=== PATIENT | female | born 1970 | race Caucasian/White ===

== ENCOUNTER → 2017-06-13 10:21 | Outpatient (CLI) | payer OTHER, SELFPAY ==
--- NOTE | 2017-06-13 10:26 | RAD_ITS ---
STUDY: X-RAY CHEST REASON FOR EXAM: Female, 46 years old. Chest pain. Shortness of breath. TECHNIQUE: PA and lateral views of the chest. COMPARISON: Comparison is made with prior study of December 14, 2011. FINDINGS: Pectus excavatum deformity. The lungs are clear and expanded. There is no demonstrated pleural abnormality. Normal size heart. Normal mediastinum and uzma. Normal visualized pulmonary arteries. Normal visualized aortic arch and descending thoracic aorta. Normal visualized thoracic spine. Normal visualized ribs, clavicles, and shoulders. There is no demonstrated abnormality of the visualized soft tissue structures of the upper abdomen. RAD/Chest PA and Lateral IMPRESSION: Normal x-ray examination of the chest. Electronically Signed: Michael Colbert MD at 13:16 EDT Tel [phone], Service support ,
== END ==
PROVIDERS: Family Provider Internal Medicine; PCP Internal Medicine; Visit Provider Internal Medicine
DX: R06.02 Shortness of breath (principal)
CPT/HCPCS: 71046

== ENCOUNTER → 2017-06-20 08:25 | Outpatient (CLI) | payer OTHER, SELFPAY ==
--- NOTE | 2017-06-20 08:28 | US_ITS ---
STUDY: ULTRASOUND GALLBLADDER REASON FOR VISIT: Female, 46 years old. Epigastric pain. TECHNIQUE: Ultrasound evaluation of the gallbladder was performed with real-time and static ballard-scale imaging. TECHNICAL QUALITY: Adequate. COMPARISON: CT dated August 13, 2011 FINDINGS: Gallbladder: Normal distended gallbladder. The gallbladder wall measures 2.2 mm. There is a negative sonographic Vogel's sign. There is no pericholecystic fluid. There are no gallstones. Common Bile Duct (C.B.D.): The common bile duct measures 2.6 mm. Within the right hepatic lobe there is a 1.5 x 1.2 x 1.3 cm simple cyst. The right kidney measures 9.2 cm in length. No hydronephrosis is visualized. US/Gallbladder IMPRESSION: Simple hepatic cyst. Electronically Signed: Marlyn Richards MD at 16:04 EDT Tel , Service support ,
== END ==
PROVIDERS: Family Provider Internal Medicine; PCP Internal Medicine; Visit Provider Internal Medicine
DX: R10.13 Epigastric pain (principal)
CPT/HCPCS: 76705

== ENCOUNTER → 2017-06-21 11:24 | Outpatient (CLI) | payer OTHER, SELFPAY ==
--- NOTE | 2017-06-21 11:28 | RAD_ITS ---
STUDY: X-RAY - RIGHT HAND REASON FOR EXAM: Female, 46 years old. Pain TECHNIQUE: 3 view(s) of the hand. COMPARISON: None. FINDINGS: Normal radiocarpal articulation. Normal distal radioulnar joint. Normal visualized carpal bones. Normal carpal articulations Normal carpometacarpal articulation of the thumb. Normal second through fifth carpometacarpal joints. Normal metacarpi. Normal metacarpophalangeal joint of the thumb. Normal interphalangeal joint of the thumb. Normal proximal and distal phalanges of the thumb. Normal metacarpophalangeal joints of the second through fifth fingers. Normal proximal and distal interphalangeal joints of the second through fifth fingers. Normal phalanges of the second through fifth fingers. The soft tissue structures are unremarkable. RAD/Hand Min 3 Views IMPRESSION: Normal x-ray examination of the hand. Electronically Signed: Theo Govea MD at 11:42 EDT Tel , Service support ,
== END ==
PROVIDERS: Family Provider Internal Medicine; PCP Internal Medicine; Visit Provider Nurse Practitioner
DX: M25.531 Pain in right wrist (principal)
CPT/HCPCS: 73130

== ENCOUNTER → 2017-06-27 07:19 | Outpatient (CLI) | payer OTHER, SELFPAY ==
--- NOTE | 2017-06-27 07:22 | NM_ITS ---
CLINICAL: 46-year-old female with reported history of abdominal pain and nausea. RADIONUCLIDE HEPATOBILIARY SCINTIGRAPHY COMPARISON: Gallbladder ultrasound report 06/20/2017 FINDINGS: Following the intravenous administration of 5.3 mCi of 99m Tc Mebrofenin, hepatobiliary images reveal: 1. Relatively prompt and homogeneous radiopharmaceutical concentration is noted by a normal sized liver. No parenchymal defects are identified. 2. Gallbladder activity is identified at 10 minutes post radiopharmaceutical administration. 3. Small intestinal tract is observed at 45 minutes following tracer injection. 4. Washout of the radiopharmaceutical by the hepatic parenchyma appears qualitatively normal. 5. There is scintigraphic evidence of pre-CCK duodenal gastric reflux. Cholecystokinin (0.02 ug/kg) was administered intravenously over a 30-minute period. The post CCK gallbladder ejection fraction calculated at 30 minutes following Cholecystokinin administration was noted to be 20.0 % (normal greater than 35%). There is scintigraphic evidence of continued post CCK duodenal gastric reflux. NM/Hepatobilliary Imaging IMPRESSION: 1. ABNORMAL 99m Tc Mebrofenin hepatobiliary imaging examination with Cholecystokinin. A. A gallbladder ejection fraction calculated to be less than 35% following the administration of Cholecystokinin is consistent with the presence of functional hepatobiliary disease (gallbladder and/or sphincter of Oddi dyskinesia) and/or organic hepatobiliary disease (chronic acalculous cholecystitis and/or cystic duct syndrome) in patients with intermediate to high pretest likelihoods of hepatobiliary illness. (Diogenes Garcia et al, Journal of Nuclear Medicine 32:1695, 1990). B. There is scintigraphic evidence of pre-post CCK duodenal-gastric reflux. (Octaviano et al, Nucl Med Shonna Rosa Press pg. 35, 1980). Electronically Signed: Quincy Kamara DO at 10:30 EDT Tel , Service support ,
== END ==
PROVIDERS: Family Provider Internal Medicine; PCP Internal Medicine; Visit Provider Internal Medicine
DX: R10.11 Right upper quadrant pain (principal)
CPT/HCPCS: 78226; A9537; J2805

== ENCOUNTER → 2017-07-04 06:32 | Outpatient (CLI) | payer OTHER, SELFPAY ==
--- NOTE | 2017-07-04 17:26 | STRESSREP ---
Stress Test Report Exercise myocardial perfusion stress test. 46-year-old lady with a history of chest pain. Stress protocol: Resting EKG demonstrates normal sinus rhythm with a rate of 69 bpm normal intervals and noted resting blood pressure is 118/72 mmHg. The patient exercised according to regular Reyes protocol for total duration of 10 minutes the maximum heart rate attained was 142 bpm which was 82% of maximum predicted heart rate the maximum workload attained was 11.7 metabolic equivalents. At rest were no ST or T-wave changes noted suggest ischemia peak exercise no ST or T-wave changes were noted suggest ischemia no clinical angina was noted. The test was terminated due to leg fatigue. Myocardial perfusion protocol. 11.5 mCi of technetium 99m sestamibi was injected at rest. Patient exercised a consult regular Reyes protocol for 10 minutes attaining 11.7 metabolic equivalents. At peak exercise 32.7 mCi of technetium 99m sestamibi was injected stress images were obtained stress and rest images were reconstructed and compared in the short axis vertical long and horizontal long axis. Gated images were also obtained pre- Perfusion SPECT analysis: Review of the stress images demonstrate normal uptake of tracer noted in all areas of the myocardium. The resting images similarly demonstrate normal uptake of tracer noted in all areas myocardium no reversibility is noted suggest ischemia no previous infarct is noted. Gated SPECT analysis: The gated ejection fraction is noted to be 75%. Conclusion: Exercise myocardial perfusion stress test with no evidence of ischemia at a high workload. Excellent functional capacity. Preserved ejection fraction.
== END ==
PROVIDERS: Family Provider Internal Medicine; PCP Internal Medicine; Visit Provider Internal Medicine
DX: R07.9 Chest pain, unspecified (principal)
CPT/HCPCS: 78452; 93017; A9500; A4216

== ENCOUNTER 2017-07-29 10:32 | Day surgery (SDC) | payer OTHER, SELFPAY ==
[2017-07-29] VITALS (9 sets, daily range): BP systolic 125–164; BP diastolic 68–102; PULSE 65–77; RESP 14–18; TEMP 35.7–36.6; O2SAT 93–100; BMI 25.4
--- NOTE | 2017-07-29 | GALL_PTH ---
PATIENT: VERONICA ANN LOC: [facility] [place][id number] AGE/SX: 47/F ROOM: RE07/29/[address]: Dr. Elias Wild MD : 1970 BED: DIS: 07/29/2017 SPEC #: [id number] RECD: 07/29/17 14:01 STATUS: MIKE REFaby #: [id number] LILIBETH: 07/29/17 00:[address]: Elias Wild DEPT: SURGICAL PATHOLOGY RECD BY: [place] Ann ENTERED: 07/29/17 14:01 SP TYPE: JESSICA VELASQUEZ DR: Dr. Carleen Michele, Tissues: Gallbladder, NOS Procedures: Surgery Specimen Level III HEADER OPERATION: Laparoscopic cholecystectomy PRE-OP DIAGNOSIS: Biliary dyskinesia TISSUE SUBMITTED: Gallbladder MICROSCOPIC DIAGNOSIS Gallbladder: Minimal chronic cholecystitis. No stones are identified in the container or in the gallbladder. SJ:alisa 07/30/17 MICROSCOPIC DESCRIPTION Slides are reviewed. GROSS DESCRIPTION Received is one container labeled with the patient's name and designated gallbladder. The specimen consists of a gallbladder measuring 7 cm in length and 3 cm in diameter. The external surface is pink-valenzuela, smooth and glistening for the most part. Focally it is granular, hemorrhagic and contains cautery artifact. The gallbladder contains green-yellow mucoid bile. No stones are identified in the container or in the gallbladder. The mucosa is bile-stained and without any mass lesions. The gallbladder wall measures up to 0.1 cm in thickness. Bushing Press Operator sections from the gallbladder and the cystic duct are submitted in one cassette. / SJ:rg 07/29/17 TC:3 CPT: 82302
--- NOTE | 2017-07-29 10:37 | EKG12_ITS ---
Test Reason : PREOP Blood Pressure : / mmHG Vent. Rate : 082 BPM Atrial Rate : 082 BPM P-R Int : 164 ms QRS Dur : 082 ms QT Int : 350 ms P-R-T Axes : 069 062 027 degrees QTc Int : 408 ms Normal sinus rhythm Biatrial enlargement Abnormal ECG When compared with ECG of 06-JAN-2012 14:14, No significant change was found Confirmed by LESLEE FENTON, ALBERT ([id number]), movie editor PHUONG TAO ([id number]) on 08/02/2017 3:58:01 PM Referred By: Elias Wild Confirmed By:ALBERT CAMILO MD
--- NOTE | 2017-07-29 12:16 | PCM.DC.GB ---
Discharge Diet: Light diet - advance as tolerated Discharge Activity: May Not Drive - for 2-3 days or while taking narcotic pain medications., - - Do not drive, work heavy equipment or sign legal documents for 24 hours. May shower in (days): 1 - with the bandage in place. Additional Activity Instructions:: Pain medication may cause nausea. You should typically eat light foods as you take your pain medications. Pain medication may also cause constipation. If this is a problem for you, please discuss with your doctor. Call your doctor if your incision/area has: Continuous Slow Oozing, Sudden Increased Bleeding, Increased Pain/ Swelling, Increased Redness, Foul Smelling Discharge Call your doctor if you observe: Fever of 101 or Higher Suture Line Care: Avoid Pulling/Pushing, Avoid Pinching/Bending Additional Dressing/Incision Instructions:: Leave operative bandaids on for 2 days. When you remove dressing, leave Steri-Strips on until your follow-up appointment, or until the Steri-Strips fall off on their own. Allergies/Adverse Reactions: Allergies cefuroxime [From Ceftin] Allergy (Unknown, Verified 07/24/17 10:02) Unknown clarithromycin [From Biaxin] Allergy (Unknown, Verified 07/24/17 10:02) Unknown doxycycline Allergy (Unknown, Verified 07/24/17 10:02) Unknown erythromycin base Allergy (Unknown, Verified 07/24/17 10:02) Unknown Medications to take at Discharge amitriptyline 10 mg tablet 10 mg PO QHS tab 07/18/17 levothyroxine 25 mcg tablet 25 mcg PO QDAY 07/18/17 venlafaxine ER 75 mg capsule,extended release 24 hr 75 mg PO BID 07/18/17 Calcium Carbonate/Vitamin D3 [Calcium 600-Vit D3 800 Tablet] 1 each PO BID 07/24/17 Vitamin K2 40 mcg PO DAILY 07/24/17 Oxycodone HCl/Acetaminophen [Percocet 5/325] 1 - 2 tab PO Q4H PRN PRN 4 Days #30 tab 07/29/17 The following prescriptions were given: Oxycodone HCl/Acetaminophen [Percocet 5/325] 1 - 2 tab PO Q4H PRN PRN 4 Days #30 tab PRN Reason: Pain Primary Care Physician: Carleen Michele DO [Primary Care Provider] - Please Follow Up With: Elias Wild MD - Please call [phone] to schedule an appointment. When: 7 days after your surgery.
--- NOTE | 2017-07-29 12:16 | PCM.OPRPT ---
Problem List (1) Biliary dyskinesia Status: Acute Report of Operation Date of Procedure: 07/29/17 Pre-Operative Diagnosis: k82.8 biliary dyskinesia Post-Operative Diagnosis: Same Surgery/Procedure Performed:: 42063 laparoscopic cholecystectomy Type of Anesthesia:: General Anesthesiologist: Bk Meehan Description of Procedure: Patient was brought in the operating room. Placed in the supine position. Under excellent general endotracheal intubation the abdomen was sterilely prepped and draped in the usual fashion. Local was injected infraumbilically. Dissection was carried down the fascia. The fascia was grasped with a Soraya. Varies needle was placed inside the abdomen. The abdomen was insufflated to 15 torr. A 10/12 trocar was placed without difficulty. Patient was placed in the head up and rotated to the left position. A subxiphoid #5 trocar was placed, inferior to this another #5 trocar was placed, and laterally a #5 trocar was placed. All these under direct visualization without injury to underlying structures. Patient had moderate amount of adhesions which were taken off the gallbladder. Fundus of the gallbladder was grasped retracted in a cephalad direction. Infundibulum was grasped retracted laterally. I dissected out the cystic duct. Please Hem-o-radha clips proximally and distally and ligated the duct. Identified the cystic artery. Please Hem-o-radha clips proximally and distally and ligated the artery. Deliver the gallbladder from the gallbladder bed with use of electrocautery I did had some spillage of bile but was able to retrieve this with a suction aspirator without difficulty. Placed a specimen and the specimen bag. I removed from the umbilical port without difficulty. Reinflated the abdomen inspected the right upper quadrant irrigated out all the irrigant was clear. I had excellent hemostasis. I remove the trochars under direct visualization. Good hemostasis was noted. I closed the fascia the umbilical port with a figure 8 stitch of 0 Vicryl. Skin incisions were closed with subcuticular stitches of 4-0 Monocryl. Steri-Strips are applied. Sterile dressings were applied. Patient tolerated the procedure well. - Admit VTE Documentation VTE Present on Admission: No VTE Mechan Device Prophylaxis: SCD's VTE Pharm Prophylaxis ordered?: No Reason prophylaxis not ordered:: Treatment Not Indicated
[2017-07-29] MEDS: Bupivacaine Mpf 0.5% 30 ML VIAL (12:40)
== END 2017-07-29 17:02 | disposition home or self-care (01) ==
LOC: SDC 10:33 → AC 10:34
PROVIDERS: Family Provider Internal Medicine; PCP Internal Medicine; Visit Provider Surgery
PROC: (CPT 47610; principal; 2017-07-29 12:10)
DX: K81.1 Chronic cholecystitis (principal); E03.9 Hypothyroidism, unspecified; E78.00 Pure hypercholesterolemia, unspecified; E55.9 Vitamin D deficiency, unspecified; K58.9 Irritable bowel syndrome, unspecified; F34.1 Dysthymic disorder; Z79.899 Other long term (current) drug therapy
CPT/HCPCS: 00790; 47562; 88304; 93005; J7120; J2405

== ENCOUNTER → 2017-09-11 07:21 | Outpatient (CLI) | payer OTHER, SELFPAY ==
--- NOTE | 2017-09-11 10:16 | NEURO ---
NCS and/or EMG Patient Report Ordering Doctor: Janet Leon DATE OF SERVICE: 09/11/17 This is a bilateral upper extremity nerve conduction study and a right upper extremity EMG performed on this 47-year-old female with bilateral hand symptoms following her third and fourth digits worse on the right side. She is healthy without a history of diabetes. The patient did have EMG testing in [address] Pardo which disclosed bilateral carpal tunnel syndrome. Bilateral upper extremity sensory and motor nerve conduction studies are performed. The median motor and sensory distal latencies are prolonged bilaterally with preservation of amplitude and mild reduction in conduction velocities. The ulnar motor and sensory and radial sensory responses are normal. The median F waves bilaterally are mildly prolonged compared to the ulnar F waves. Upper extremity needle electromyography was performed. Muscles evaluated included the first dorsal interosseous, abductor pollicis brevis, brachioradialis, biceps, triceps, and deltoid muscles. All muscles demonstrated normal insertional activity with absence of pathologic spontaneous activity. Motor unit potential recruitment pattern and amplitude are normal in all muscles tested. Impression: Abnormal electrophysiologic study of the bilateral upper extremities consistent with moderate to severe carpal tunnel syndrome bilaterally, electrically the findings are similar or mildly worse than the previous study in 2014.
== END ==
PROVIDERS: Family Provider Internal Medicine; PCP Internal Medicine; Visit Provider Nurse Practitioner
DX: R20.2 Paresthesia of skin (principal)
CPT/HCPCS: 95886; 95911

== ENCOUNTER 2018-08-23 17:48 | Emergency (ER) | payer OTHER, SELFPAY ==
[2018-08-23 17:48] VITALS: BP 119/71; PULSE 92; RESP 16; TEMP 36.9; O2SAT 99; BMI 25.9
[2018-08-23 18:05] LABS: Bacteria 0 SEEN /hpf (None Seen); Mucous, Urine 0 SEEN /hpf (<or=2+); Red Blood Cells-Urine 0 SEEN /hpf (0-5); Squamous Epithelial Cells - UA 0 SEEN /hpf (5-10); White Blood Cells 0 SEEN /hpf (0-5)
[2018-08-23 18:12] LABS: Color, Urine Yellow (Yellow); Glucose, Dipstick Normal (Normal); Ketone-Dipstick Negative (Negative); Leukocyte Esterase-Dipstick 100 /ul (Negative); Nitrite-Dipstick Negative (Negative); Occult Blood-Urine Negative /ul (Negative); Protein-Dipstick Negative (Negative); Urine Bilirubin Dipstick Negative (Negative); Urine Clarity Clear (Clear); Urine Urobilinogen Normal (Normal); Urine pH 6.5 (5.0 - 8.0)
--- NOTE | 2018-08-23 18:51 | CT_ITS ---
STUDY: CT ABDOMEN AND PELVIS WITH CONTRAST REASON FOR EXAM: Female, 48 years old. Abdominal pain, epigastric pain. RADIATION DOSAGE (If Supplied By Facility): CTDIvol = ( 12.07 ) mGy, DLP = ( 546.16 ) mGycm TECHNIQUE: Transaxial images were obtained from the dome of the diaphragm to the symphysis pubis without oral contrast. 100 IV Isovue 300 was administered. Sagittal and coronal images were reconstructed. Individualized dose optimization techniques were used for this CT. COMPARISON: None. FINDINGS: Lung bases are clear. Visualized heart is normal. There is a 1.9 cm cyst in the posterior segment of the liver inferiorly. There is a 5 mm hypodensity in the anterior segment superiorly. This suggests small to characterize. The liver is otherwise unremarkable. The gallbladder is unremarkable. The spleen and pancreas are unremarkable. The adrenal glands are normal. The kidneys are unremarkable. No stones or hydronephrosis. The aorta is normal in caliber. There is no free fluid, free air, or organized collection. No bowel obstruction or inflammatory change. Stool burden is moderate. Normal appendix. Urinary bladder is unremarkable. Normal abdominal wall. There are mild degenerative changes of the lumbar spine. Small disc bulges are noted at L4-5 and L5-S1. CT/Abdomen/Pelvis W IV Cont ONLY IMPRESSION: 1. No acute findings. 2. Hepatic cyst and an additional 5 mm hypodensity too small to characterize. 3. Small lumbar disc bulges. Electronically Signed: Caroline Hackett MD at 20:48 EDT Tel , Service support ,
--- NOTE | 2018-08-23 18:54 | ED.DCSUM_ITS ---
- ER Visit Summary Date of Service: 08/23/18 Chief Complaint: Low back pain and abdominal pain History of Present Illness: The patient is a 48 F who presents for bilateral lower back pain that started this morning and is gradually radiated bilaterally into the lower abdomen. Patient has had sweats all day and associated nausea. No vomiting, diarrhea, blood in her stool, dysuria or hematuria. Patient has had frequency and urgency today. She has history of thyroid issues, kidney stones and is status post cholecystectomy, hysterectomy. No chest pain, shortness of breath, cough, congestion or other complaints. Physical Examination: Vital signs: afebrile, hemodynamically stable, no hypoxia on room air General: well nourished, well developed, in no distress Skin: warm, dry, no rash, no pallor HEENT: normocephalic and atraumatic; PERRL, EOMI, moist mucous membranes Cardiovascular: regular rate and rhythm without murmurs, no peripheral edema, 2+ pulses all distal extremities Respiratory: No increased work of breathing, lungs are clear to auscultation bilaterally, no rales, rhonchi or wheezing Abdominal: Abdomen is soft, diffusely tender with normoactive bowel sounds, no guarding or rebound, no masses, no CVA tenderness MSK: Moves all extremities, no deformities, normal strength Neuro: Awake and alert, oriented ?4. No facial droop, sensation and motor function intact and symmetric Test Results: Abnormal Lab Results 08/23/18 08/23/18 08/23/18 17:58 19:14 19:14 WBC 9.5 RBC 4.94 Hgb 13.8 Hct 41.3 MCV 83.6 MCH 27.9 MCHC 33.4 RDW 12.7 RDW Differential 38.5 Plt Count 287 MPV 8.7 Immature Gran % (Auto) 0.100 Neut % (Auto) 51.0 Lymph % (Auto) 34.9 [place] % (Auto) 8.4 Eos % (Auto) 5.3 H Baso % (Auto) 0.3 Absolute Neuts (auto) 4.8 Absolute Lymphs (auto) 3.30 Total Counted Not Reportable Sodium 141 Potassium 3.8 Chloride 106 Carbon Dioxide 31.0 Anion Gap 4 L BUN 9 Creatinine 1.08 H Estim Creat Clear Calc 49.29 Est GFR (MDRD) Af Amer 69 Est GFR (MDRD) Non-Af 57 L BUN/Creatinine Ratio 8.3 L Glucose 79 Calcium 8.8 Total Bilirubin 0.30 AST 20 ALT 20 Alkaline Phosphatase 89 Total Protein 7.0 Albumin 3.7 Globulin 3.3 Albumin/Globulin Ratio 1.1 Lipase 432 H Urine Color Yellow Urine Clarity Clear Urine pH 6.5 Ur Specific Somers 1.010 Urine Protein Negative Urine Glucose (UA) Normal Urine Ketones Negative Urine Occult Blood Negative Urine Nitrite Negative Urine Bilirubin Negative Urine Urobilinogen Normal Ur Leukocyte Esterase 100 H Urine RBC 0 SEEN Urine WBC 0 SEEN Ur Squamous Epith Cells 0 SEEN Urine Bacteria 0 SEEN Urine Mucus 0 SEEN Clinical Impression(s) from Imaging Studies Abdomen/Pelvis CT 08/23/18 18:51 IMPRESSION: 1. No acute findings. 2. Hepatic cyst and an additional 5 mm hypodensity too small to characterize. 3. Small lumbar disc bulges. Electronically Signed: Caroline Hackett MD at 20:48 EDT Tel , Service support , Medications Given Discontinued Medications Hydrocodone Bitart/Acetaminophen (Clarkrange 5mg-325mg) 1 tablet PO X1 ONE Stop: 08/23/18 21:49 Last Admin: 08/23/18 22:00 Dose: 1 tablet Sodium Chloride () 1,000 mls @ 1,000 mls/hr IV .Q1H ONE Stop: 08/23/18 19:50 Last Admin: 08/23/18 19:15 Dose: 1,000 mls/hr Morphine Sulfate () 4 mg IV X1 ONE Stop: 08/23/18 18:52 Last Admin: 08/23/18 19:15 Dose: 4 mg Morphine Sulfate () 4 mg IV X1 ONE Stop: 08/23/18 21:00 Last Admin: 08/23/18 21:05 Dose: 4 mg Ondansetron HCl (Zofran) 4 mg IV X1 ONE Stop: 08/23/18 18:52 Last Admin: 08/23/18 19:15 Dose: 4 mg Trimethoprim/Sulfamethoxazole (Bactrim Ds) 1 tablet PO X1 ONE Stop: 08/23/18 21:49 Last Admin: 08/23/18 22:00 Dose: 1 tablet Emergency Department Course and Treatment: Patient presents with lower back and lower abdominal pain bilaterally. She is status post hysterectomy and o ophorectomy, making ovarian torsion or other gynecologic issue highly unlikely. Patient was given fluids, morphine and Zofran for symptomatic relief. Labs showed no leukocytosis. CMP is unremarkable. Lipase was slightly elevated at 432, with no suspicion for pancreatitis based on patient's complaints. Urinalysis showed positive leuk esterase. Culture was sent. CT of the abdomen pelvis showed bulging disks in the lumbar region but no acute intra-abdominal process. Patient required additional pain medication and was comfortable on reevaluation. Because of the clinical picture and the findings on the urinalysis of the leukoesterase, patient will be started empirically on Bactrim for treatment of UTI. Culture is pending. Patient will use [id number] pain medication for mild to moderate pain. She was given norco for severe pain. Patient has an appointment with her primary care physician in 5 days and will keep that appointment. Return precautions given. Discharged home in improved condition. Treatment Plan: [] Disposition: [] Impression: Concern for UTI This note was generated with [employer] dictation software. It may contain incorrect words, spelling, and punctuation that were not noted in review of the chart prior to signing ED Disposition - Plan for ED Patient: Disposition: Home or Assisted Living Instructions: ED Abdominal Pain Unkn Cause, ED UTI Cystitis Female Prescriptions: Hydrocodone Bitart/Apap 5-325 [Clarkrange 5MG-325MG] 1 tab PO Q6H PRN PRN 3 Days #10 tab PRN Reason: Pain Ondansetron [Zofran Odt] 4 mg PO Q8H PRN PRN #10 tab PRN Reason: Nausea Smz/Tmp Ds [Bactrim Ds] 1 tab PO BID #10 tab Referrals: Carleen Michele DO [Primary Care Provider] - Keep Chan appointment Additional Instructions: Please keep your appointment on with your primary care doctor. Use [id number] pain medication as needed for mild to moderate pain. You may use the Clarkrange for severe pain. Use the Zofran as needed for nausea. You may have a urinary tract infection. Please take the Bactrim twice daily as prescribed. If at any time you develop worsening or new symptoms, please return immediately to the emergency department for another evaluation.
[2018-08-23] MEDS: Morphine 4 MG/ML Syringe IV ×2 (19:15→21:05)
[2018-08-23] MEDS: Ondansetron 4 MG/2 ML Vial IV (19:15)
[2018-08-23] MEDS: 0.9% Normal Saline 1,000 ML 1000 ML IV (19:15)
[2018-08-23 19:28] LABS: Absolute Neutrophil Count 4.8 X10^3/uL (2.0-7.7); Basophil# 0.03 X10^3/uL; Basophil% 0.3 % (0-1); Eosinophils% 5.3 % (0-5); Hematocrit 41.3 % (37-47); Hemoglobin 13.8 g/dl (12.0-15.0); Lymphocyte % 34.9 % (19-41); Mean Corp Hgb Conc 33.4 g/gl (32-36); Mean Corpuscular Hgb 27.9 pg (27.0-32.0); Mean Corpuscular Volume 83.6 fL (81-99); Mean Platelet Vol. 8.7 fl (6.2-12.0); Monocyte# 0.79 X10^3/uL; Monocyte% 8.4 % (0-10); Neutrophil # 4.83 X10^3/uL (2.7-7.7); Platelet Count 287 K/mm3 (150-450); RBC Distribution Width CV 12.7 % (11.6-14.6); RBC Distribution Width SD 38.5 fl (35.1-43.9); Red Blood Count 4.94 M/mm3 (4.2-5.4); White Blood Count 9.5 K/mm3 (4.4-11.0)
[2018-08-23 19:29] LABS: POSITIVE COUNT NO; POSITIVE DIFFERENTIAL NO; POSITIVE MORPHOLOGY NO
[2018-08-23 19:42] LABS: ALB/GLOB Ratio 1.1 RATIO (0.9-2.4); AST(SGOT) 20 U/L (15-37); Alanine Aminotransfer ALT/SGPT 20 U/L (13-56); Albumin, Serum 3.7 g/dL (3.2-5.0); Alkaline Phosphatase 89 U/L (45-117); Anion Gap 4 (5-15); BUN 9 mg/dL (7-18); BUN/Creat Ratio 8.3 RATIO (10-20); Calcium,Total 8.8 mg/dL (8.5-10.1); Chloride 106 mmol/L (98-107); Creatinine, Serum 1.08 mg/dL (0.55-1.02); EST Glomerular Filtration Rate 57 mL/min (>60); Est Glom Filt Rate - Afr Amer 69 mL/min (>60); Estimated Creatinine Clearance 49.29 ml/min; Globulin 3.3 g/dL (2.2-4.2); Glucose 79 mg/dL (74-106); Lipase 432 U/L (73-393); Potassium 3.8 mmol/L (3.5-5.1); Sodium Level 141 mmol/L (136-145)
[2018-08-23 21:06] VITALS: BP 145/72; PULSE 78; RESP 16; O2SAT 98
[2018-08-23] MEDS: Smz/Tmp Ds Tablet 1 TABLET PO (22:00)
[2018-08-23] MEDS: HYDROcodone Bitartrate/Apap 5/325 Tablet PO (22:00)
[2018-08-23 22:01] VITALS: BP 134/90; PULSE 81; RESP 16
== END 2018-08-23 22:02 | disposition home or self-care (01) ==
PROVIDERS: Emergency Provider Emergency Medicine; Family Provider Internal Medicine; PCP Internal Medicine
DX: R10.30 Lower abdominal pain, unspecified (principal); M54.5 Low back pain; R11.0 Nausea; R79.89 Other specified abnormal findings of blood chemistry; R35.0 Frequency of micturition; R39.15 Urgency of urination; E07.9 Disorder of thyroid, unspecified; Z79.899 Other long term (current) drug therapy; Z87.442 Personal history of urinary calculi; Z90.710 Acquired absence of both cervix and uterus; Z90.49 Acquired absence of other specified parts of digestive tract
CPT/HCPCS: 74177; 80053; 81001; 83690; 85025; 87086; 87088; 96361; 96374; 96375; 96376; 99284; J7030; Q9967; A4216; J2405

== ENCOUNTER → 2019-02-05 08:35 | Outpatient (CLI) | payer OTHER, SELFPAY ==
--- NOTE | 2019-02-05 08:39 | BD_ITS ---
STUDY: DUAL ENERGY X-RAY ABSORPTIOMETRY / DXA REASON FOR EXAM: Female, 48 years old. Early menopause. No loss of height. TECHNIQUE: Bone Mineral Density (BMD) measurements of lumbar spine and bilateral hips were obtained. COMPARISON: Comparison is made with prior study dated May 17, 2016. FINDINGS: Lumbar Spine (L1-L4): g/cm2 (0.973) / T-score (-1.6) / Z-score (-1.2) Findings are suggestive of osteopenia with a moderate fracture risk. Left Femur Total: g/cm2 (0.962) / T-score (-0.4) / Z-score (0.1) Left Femoral Neck: g/cm2 (0.950) / T-score (-0.6) / Z-score (0.2) Right Femur Total: g/cm2 (0.915) / T-score (-0.7) / Z-score (-0.2) Right Femoral Neck: g/cm2 (0.876) / T-score (-1.2) / Z-score (-0.4) The T-Scores on the most recent prior examination were: Lumbar Spine (L1-L4): There has been worsening of bone density since the previous examination. Left Femur Total: which represents a worsening of 3%. Right Femur Total: which represents a worsening of 6%. BD/Dexa Bone Density Study IMPRESSION: The patient is considered osteopenic as outlined below according to World Quinton Organization (WHO) criteria with a moderate fracture risk. There has been worsening of bone density since the previous examination. Reference Information: The T-score is the number of standard deviations above or below the standard which is normal for young adults at their peak bone mineral density. The World Health Organization (WHO) interprets the T-scores as follows: Above -1 Normal bone density Between -1 and -2.5 Osteopenia Equal to / or below -2.5 Osteoporosis As a practical clinical guideline, osteopenia may be graded as follows: Mild -1 through -1.5 Moderate -1.6 through -2.0 Severe -2.1 through -2.4 The Z-score is the number of standard deviations above or below age-matched controls. A Z-score of less than -1.5 would be considered abnormal. References: 1. NIH Osteoporosis and Related Bone Diseases http://www.osteo.org 2. International Society for Clinical Densitometry http://www.iscd.org 3. National Osteoporosis Foundation http://www.nof.org Electronically Signed: Michael Colbert, at 12:47 EST , Service support ,
== END ==
PROVIDERS: Family Provider Internal Medicine; PCP Internal Medicine; Referring Provider Internal Medicine; Visit Provider Internal Medicine
DX: Z78.0 Asymptomatic menopausal state (principal); M85.80 Other specified disorders of bone density and structure, unspecified site
CPT/HCPCS: 77080

== ENCOUNTER 2020-03-18 17:03 | Emergency (ER) | payer OTHER, SELFPAY ==
[2020-02-26 11:15] VITALS: BMI 26.9
[2020-03-18 17:04] VITALS: BP 143/92; PULSE 88; RESP 16; TEMP 36.2; O2SAT 100; BMI 25.9
[2020-03-18 17:22] LABS: Bacteria 0 SEEN /hpf (None Seen); Mucous, Urine 0 SEEN /hpf (<or=2+); Red Blood Cells-Urine 0 SEEN /hpf (0-5)
[2020-03-18 17:34] LABS: Color, Urine Yellow (Yellow); Glucose, Dipstick Normal (Normal); Ketone-Dipstick Negative (Negative); Leukocyte Esterase-Dipstick 100 /ul (Negative); Nitrite-Dipstick Negative (Negative); Occult Blood-Urine Negative /ul (Negative); Protein-Dipstick Negative (Negative); Urine Bilirubin Dipstick Negative (Negative); Urine Clarity Sl. Cloudy (Clear); Urine Urobilinogen Normal (Normal)
[2020-03-18 17:58] LABS: Amorphous Sediment 1+ URATE; Squamous Epithelial Cells - UA 0-5 SEEN /hpf (5-10); White Blood Cells 10-25 SEEN /hpf (0-5)
--- NOTE | 2020-03-18 18:16 | ED.VIS.GEN ---
History of Present Illness Chief Complaint: Flank Pain Detail of Chief Complaint: Abdominal pain Informant: Patient Onset: Days - 3 days Context: Gradual Onset Timing: Waxes and wanes Current Severity: Moderate Maximum Severity: Moderate Narrative: Patient presents with 3-day history of abdominal pain. She states at times it will feel like it is left flank. She has not had fever or chills. No change in appetite. She feels that she may have been urinating more than normal today. - Past Medical History (1) Hypothyroid Status: Chronic (2) Hypercholesteremia Status: Chronic (3) Depression Status: Chronic (4) Anxiety Status: Chronic Past Medical History - Allergies and Home Meds Allergies/Adverse Reactions: Allergies cefuroxime [From Ceftin] Allergy (Unknown, Verified 03/18/20 17:06) Unknown clarithromycin [From Biaxin] Allergy (Unknown, Verified 03/18/20 17:06) Unknown doxycycline Allergy (Unknown, Verified 03/18/20 17:06) Unknown erythromycin base Allergy (Unknown, Verified 03/18/20 17:06) Unknown Primary Care Physician: Carleen Michele DO [Primary Care Provider] - Prior records reviewed: Yes Lives: Spouse/ Significant Other Smoking Status: Never smoker Review of Systems General: Denies: Chills, Fever Eyes: Denies: Visual changes - bilaterally ENT: Denies: Bilateral ear pain Cardiovascular: Denies: Chest pain Respiratory: Denies: Dyspnea, Cough Gastrointestinal: Reports: Abdominal pain. Denies: Vomiting, Diarrhea Genitourinary: Reports: Frequency. Denies: Dysuria Musculoskeletal: Denies: Extremity Pain Neurological: Denies: Headache Hematologic: Denies: Easy bruising, Easy bleeding Allergy: Denies: Uticaria Physical Exam Vital Signs/Narrative: Vital Signs Temp Pulse Resp BP Pulse Ox 03/18/20 17:04 97.2 F L 88 16 143/92 H 100 Inital Vital Signs reviewed: Yes General: Well nourished, Well developed Head: Normocephalic ENT: Moist mucous membranes Neck: Supple Cardiovascular: Regular rate, Regular rhythm Respiratory: No distress, CTA bilaterally Abdomen: Soft, Tender - Mild diffuse tenderness to palpation.. Negative for: Guarding, Rebound tenderness Extremities: Nontender Skin: Normal color Neurological: Alert, Oriented x3 Psychological: Normal affect Diagnostic/Tx/Re-eval Impressions Abdomen/Pelvis CT 03/18/20 18:55 IMPRESSION: Unremarkable abdomen. No acute findings. Electronically Signed: Rosana Quezada, at 19:29 EST Tel , Service support , 03/18/20 18:55 Abdomen/Pelvis without Cont [CT] Stat Laboratory Results 03/18/20 03/18/20 03/18/20 17:13 18:40 18:40 WBC 9.2 RBC 5.14 Hgb 14.5 Hct 43.6 MCV 84.8 MCH 28.2 MCHC 33.3 RDW Std Deviation 38.5 RDW Coeff of [place] 12.5 Plt Count 344 MPV 8.8 Immature Gran % (Auto) 0.200 Neut % (Auto) 53.2 Lymph % (Auto) 33.5 Gordon % (Auto) 8.0 Eos % (Auto) 4.7 Baso % (Auto) 0.4 Absolute Neuts (auto) 4.9 Absolute Lymphs (auto) 3.09 Nucleated RBC % 0 Sodium 142 Potassium 3.5 Chloride 105 Carbon Dioxide 32.0 Anion Gap 5 BUN 12 Creatinine 0.91 Estim Creat Clear Calc 57.85 Est GFR (MDRD) Af Amer 83 Est GFR (MDRD) Non-Af 69 BUN/Creatinine Ratio 13.2 Glucose 82 Calcium 9.1 Total Bilirubin 0.40 AST 18 ALT 25 Alkaline Phosphatase 93 Total Protein 7.0 Albumin 3.8 Globulin 3.2 Albumin/Globulin Ratio 1.2 Urine Color Yellow Urine Clarity Sl. Cloudy Urine pH 6.0 Ur Specific [place] 1.020 Urine Protein Negative Urine Glucose (UA) Normal Urine Ketones Negative Urine Occult Blood Negative Urine Nitrite Negative Urine Bilirubin Negative Urine Urobilinogen Normal Ur Leukocyte Esterase 100 H Urine RBC 0 SEEN Urine WBC 10-25 SEEN Ur Squamous Epith Cells 0-5 SEEN Amorphous Sediment 1+ URATE Urine Bacteria 0 SEEN Urine Mucus 0 SEEN - Medical Decision Making Patient was given 2 mg of morphine, 15 mg of Toradol, 4 mg of Zofran, and IV fluids. Test results are reviewed. Patient has no bacteria in her urine. Electrolytes and CBC are normal. CT scan is read as unremarkable study. On my review she does have significant gas noted throughout the intestine. She will be given Bentyl to see if this helps control spasm and gas pain. She is given return instructions. ED Disposition - Plan for ED Patient: Disposition: Home or Assisted Living Diagnosis: Abdominal pain Instructions: ED Abdominal Pain Unkn Cause Fem Prescriptions: Dicyclomine HCl [Bentyl] 20 mg PO TIDAC #20 cap Transmission Status: Pending to [id number] Referrals: Carleen Michele DO [Primary Care Provider] - 1 Week if not improving
[2020-03-18] MEDS: 0.9% Normal Saline 1,000 ML 150 ML IV (18:40)
[2020-03-18] MEDS: Ondansetron 4 MG/2 ML Vial IV (18:41)
[2020-03-18] MEDS: Ketorolac 15 MG/ML Vial IV (18:41)
[2020-03-18] MEDS: Morphine 2 MG/ML Syringe IV (18:43)
[2020-03-18 18:51] LABS: Absolute Lymphocyte Count 3.09 X10^3/uL (0.83-4.51); Absolute Neutrophil Count 4.9 X10^3/uL (2.0-7.7); Basophil# 0.04 X10^3/uL; Basophil% 0.4 % (0-1); Eosinophil# 0.43 X10^3/uL; Eosinophils% 4.7 % (0-5); Hematocrit 43.6 % (37-47); Hemoglobin 14.5 g/dL (12.0-15.0); Lymphocyte # 3.09 X10^3/ul (4.0); Lymphocyte % 33.5 % (19-41); Mean Corp Hgb Conc 33.3 g/dL (32-36); Mean Corpuscular Hgb 28.2 pg (27.0-32.0); Mean Corpuscular Volume 84.8 fL (81-99); Mean Platelet Vol. 8.8 fl (6.2-12.0); Monocyte# 0.74 X10^3/uL; NRBC Flagged by Analyzer 0 % (0-5); Neutrophil % 53.2 % (47-70); Platelet Count 344 K/mm3 (150-450); RBC Distribution Width CV 12.5 % (11.6-14.6); RBC Distribution Width SD 38.5 fl (35.1-43.9); Red Blood Count 5.14 M/mm3 (4.2-5.4); White Blood Count 9.2 K/mm3 (4.4-11.0)
--- NOTE | 2020-03-18 18:55 | CT_ITS ---
STUDY: CT ABDOMEN AND PELVIS WITHOUT CONTRAST REASON FOR EXAM: Female, 49 years old. Flank pain for 3 days, RADIATION DOSAGE (If Supplied By Facility): CTDIvol = ( 6.35 ) mGy, DLP = ( 330.02 ) mGycm TECHNIQUE: Transaxial images were obtained from the dome of the diaphragm to the symphysis pubis without oral contrast, and without intravenous contrast. Sagittal and coronal images were reconstructed. Individualized dose optimization techniques were used for this CT. COMPARISON: None. FINDINGS: The visualized lung bases are unremarkable. The visualized portions of the heart are within normal limits. There is a presumed hepatic cyst in the lower right lobe.. There is cholecystectomy. Normal spleen. Normal pancreas. There are benign dystopic ossifications in the right adrenal. There are no adrenal lesions. Normal right kidney. Normal left kidney. Normal visualized stomach. Normal small intestine. Normal colon. The appendix is visualized and appears normal. Normal abdominal aorta. Normal inferior vena cava. Normal retroperitoneum. Normal urinary bladder. Uterus is surgically removed. There are no lytic phleboliths. Normal abdominal wall. Osseous structures are intact with benign hemangioma in L3. CT/Abdomen/Pelvis without Cont IMPRESSION: Unremarkable abdomen. No acute findings. Electronically Signed: Rosana Quezada, at 19:29 EST Tel , Service support ,
[2020-03-18 19:07] LABS: ALB/GLOB Ratio 1.2 RATIO (0.9-2.4); AST(SGOT) 18 U/L (15-37); Alanine Aminotransfer ALT/SGPT 25 U/L (13-56); Albumin, Serum 3.8 g/dL (3.2-5.0); Alkaline Phosphatase 93 U/L (45-117); Anion Gap 5 (5-15); BUN 12 mg/dL (7-18); BUN/Creat Ratio 13.2 RATIO (10-20); Calcium,Total 9.1 mg/dL (8.5-10.1); Chloride 105 mmol/L (98-107); Creatinine, Serum 0.91 mg/dL (0.55-1.02); EST Glomerular Filtration Rate 69 mL/min (>60); Est Glom Filt Rate - Afr Amer 83 mL/min (>60); Estimated Creatinine Clearance 57.85 ml/min; Globulin 3.2 g/dL (2.2-4.2); Glucose 82 mg/dL (74-106); Potassium 3.5 mmol/L (3.5-5.1); Sodium Level 142 mmol/L (136-145)
[2020-03-18 19:57] VITALS: BP 138/86; PULSE 76; RESP 17; O2SAT 97
[2020-03-18] MEDS: Dicyclomine 10 MG Capsule 20 MG PO (20:07)
[2020-03-18 20:09] VITALS: RESP 18
== END 2020-03-18 20:09 | disposition home or self-care (01) ==
PROVIDERS: Emergency Provider Emergency Medicine; PCP Internal Medicine
DX: R10.9 Unspecified abdominal pain (principal); E78.00 Pure hypercholesterolemia, unspecified; E03.9 Hypothyroidism, unspecified; F32.9 Major depressive disorder, single episode, unspecified; F41.9 Anxiety disorder, unspecified; Z88.1 Allergy status to other antibiotic agents
CPT/HCPCS: 74176; 80053; 81001; 85025; 96361; 96374; 96375; 99284; J7030; A4216; J2405

== ENCOUNTER 2020-05-30 17:19 | Emergency (ER) | payer OTHER, SELFPAY ==
[2020-05-26 09:15] VITALS: BMI 25.7
[2020-05-30 17:21] VITALS: BP 123/75; PULSE 95; RESP 17; TEMP 36.1; O2SAT 100; BMI 24.8
[2020-05-30 17:27] VITALS: BP 123/75; PULSE 95; RESP 17; TEMP 36.1; O2SAT 100
[2020-05-30 17:51] VITALS: BP 144/99; PULSE 89; RESP 18; TEMP 36.6; O2SAT 99
[2020-05-30] MEDS: dexAMETHasone 10 MG/ML Vial 6 MG IV (18:04)
[2020-05-30 18:07] VITALS: BP 144/99; PULSE 89; RESP 18; O2SAT 98
[2020-05-30 18:09] LABS: Absolute Lymphocyte Count 2.06 X10^3/uL (0.83-4.51); Absolute Neutrophil Count 2.4 X10^3/uL (2.0-7.7); Basophil# 0.02 X10^3/uL; Basophil% 0.4 % (0-1); Differential Indicated SCAN CRITERIA MET; Eosinophil# 0.12 X10^3/uL; Eosinophils% 2.3 % (0-5); Hemoglobin 14.5 g/dL (12.0-15.0); Lymphocyte # 2.06 X10^3/ul (4.0); Lymphocyte % 39.6 % (19-41); Mean Corp Hgb Conc 32.2 g/dL (32-36); Mean Corpuscular Hgb 26.8 pg (27.0-32.0); Mean Platelet Vol. 8.8 fl (6.2-12.0); Monocyte# 0.55 X10^3/uL; Monocyte% 10.6 % (0-10); NRBC Flagged by Analyzer 0 % (0-5); Neutrophil # 2.43 X10^3/uL (2.7-7.7); Neutrophil % 46.7 % (47-70); POSITIVE MORPHOLOGY YES; Platelet Count 350 K/mm3 (150-450); RBC Distribution Width CV 12.2 % (11.6-14.6); RBC Distribution Width SD 37.1 fl (35.1-43.9); Red Blood Count 5.42 M/mm3 (4.2-5.4); White Blood Count 5.2 K/mm3 (4.4-11.0)
--- NOTE | 2020-05-30 18:12 | RAD_ITS ---
STUDY: X-RAY CHEST REASON FOR EXAM: Female, 49 years old. weak, covid + TECHNIQUE: Single AP portable view of the chest. COMPARISON: 06/13/2017 FINDINGS: Faint alveolar opacities in both lung bases consistent with bibasilar pneumonia. There is no demonstrated pleural abnormality. Normal size heart. Normal mediastinum and uzma. Normal visualized pulmonary arteries. Normal visualized aortic arch and descending thoracic aorta. Mild levoscoliosis of the lower thoracic spine. Normal visualized ribs, clavicles, and shoulders. There is no demonstrated abnormality of the visualized soft tissue structures of the upper abdomen. RAD/Chest 1 View (Portable) IMPRESSION: Bibasilar pneumonia. Electronically Signed: Quincy Fischer MD at 19:08 EST Tel , Service support ,
--- NOTE | 2020-05-30 18:18 | ED.VIS.GEN ---
History of Present Illness Chief Complaint: General Illness Narrative: Patient was diagnosed with Covid 4 days ago but her symptoms started about a week ago. She is just feeling ill. She has no shortness of breath. She has no fever or chills. She feels weak especially that she has to care for her mother. She has no upper airway congestion, she has no back pain. She has no pleuritic component she has no lower extremity edema. She does have some myalgias. No loss of taste or smell. Past medical history: Overall unremarkable Medications: Reviewed Social history: Noncontributory Review of systems: All systems negative except as indicated General: Denies: Fever. Generalized weakness as in HPI Eyes: Denies: Visual changes - bilaterally ENT: Denies: Rhinorrhea, Sore throat Cardiovascular: Denies: Chest pain Respiratory: Denies: Dyspnea, Cough Gastrointestinal: Denies: Abdominal pain, Nausea, Vomiting Genitourinary: Denies: Dysuria Musculoskeletal: Generalized myalgias as in HPI Skin: Denies: Rash Neurological: Denies: Headache, no focal weakness Psych: Reports: negative Hematologic: Denies: Easy bruising, Easy bleeding Physical exam General: Well nourished, Well developed, No Acute Distress Head: Normocephalic, Atraumatic Eyes: Conjunctiva not pale ENT: Moist mucous membranes Neck: Supple, Nontender, No lymphadenopathy Cardiovascular: Regular rate, Regular rhythm Respiratory: No distress, CTA bilaterally Abdomen: Soft, Nontender, Nondistended Back: Nontender, Normal Inspection. Negative for: CVA tenderness Extremities: Nontender, No edema Skin: Normal color, No rash Neurological: Alert, Normal Strength, Normal Sensation Psychological: Normal affect Past Medical History - Allergies and Home Meds Allergies/Adverse Reactions: Allergies cefuroxime [From Ceftin] Allergy (Unknown, Verified 05/30/20 17:21) Unknown clarithromycin [From Biaxin] Allergy (Unknown, Verified 05/30/20 17:21) Unknown doxycycline Allergy (Unknown, Verified 05/30/20 17:21) Unknown erythromycin base Allergy (Unknown, Verified 05/30/20 17:21) Unknown Primary Care Physician: Carleen Michele DO [Primary Care Provider] - Smoking Status: Never smoker Physical Exam Vital Signs/Narrative: Vital Signs Temp Pulse Resp BP Pulse Ox 05/30/20 18:07 89 18 144/99 H 98 05/30/20 17:51 98 F 89 18 144/99 H 99 05/30/20 17:27 96.9 F L 95 17 123/75 H 100 05/30/20 17:21 96.9 F L 95 17 123/75 H 100 Diagnostic/Tx/Re-eval Chest X-Ray - ED: 1 View, Read by ED Physician, Read by Radiologist, - - Patient has bilateral groundglass infiltrates consistent with Covid - Medical Decision Making Patient has normal oxygenation she has normal vitals she appears well. I had a long discussion with her she will be discharged in stable condition. I gave her Decadron here but otherwise she appears well. She is told to get a pulse oximeter, if she feels worse she needs to return. ED Disposition - Plan for ED Patient: Disposition: Home or Assisted Living Diagnosis: COVID-19 Instructions: Coronavirus Disease 2019 (COVID-19): Overview Referrals: Carleen Michele DO [Primary Care Provider] - 1 Day
[2020-05-30 18:27] LABS: Atypical Lymphocyte 1+ %
[2020-05-30 18:29] LABS: ALB/GLOB Ratio 0.8 RATIO (0.9-2.4); AST(SGOT) 93 U/L (15-37); Alanine Aminotransfer ALT/SGPT 71 U/L (13-56); Albumin, Serum 3.3 g/dL (3.2-5.0); Alkaline Phosphatase 87 U/L (45-117); Anion Gap 7 (5-15); BUN 12 mg/dL (7-18); BUN/Creat Ratio 13.7 RATIO (10-20); Calcium,Total 9.1 mg/dL (8.5-10.1); Chloride 104 mmol/L (98-107); Creatinine, Serum 0.88 mg/dL (0.55-1.02); EST Glomerular Filtration Rate 72 mL/min (>60); Est Glom Filt Rate - Afr Amer 87 mL/min (>60); Estimated Creatinine Clearance 59.82 ml/min; Globulin 3.9 g/dL (2.2-4.2); Glucose 82 mg/dL (74-106); Potassium 3.8 mmol/L (3.5-5.1); Protein, Total 7.2 g/dL (6.4-8.2); Sodium Level 142 mmol/L (136-145)
[2020-05-30] MEDS: Ketorolac 15 MG/ML Vial IV (19:44)
[2020-05-30 19:46] VITALS: BP 143/69; PULSE 74; RESP 17; O2SAT 98
== END 2020-05-30 19:54 | disposition home or self-care (01) ==
PROVIDERS: Emergency Provider Emergency Medicine; PCP Internal Medicine
DX: U07.1 COVID-19 (principal); M79.10 Myalgia, unspecified site; R53.1 Weakness
CPT/HCPCS: 71045; 80053; 85025; 96374; 96375; 99283; A4216

== ENCOUNTER → 2021-07-26 | Outpatient (CLI) | payer OTHER, SELFPAY ==
[2021-07-26 18:57] LABS: Thyroid Stim Hormone (TSH) 4.33 uIU/mL (0.358-3.74)
== END | disposition home or self-care (01) ==
PROVIDERS: PCP Internal Medicine; Referring Provider Internal Medicine; Visit Provider Internal Medicine
DX: E03.9 Hypothyroidism, unspecified (principal)
CPT/HCPCS: 36415; 84443

== ENCOUNTER → 2021-08-16 | Outpatient (CLI) | payer OTHER, SELFPAY ==
--- NOTE | 2021-08-16 11:27 | BI_ITS ---
MAMMOGRAPHY - BILATERAL SCREENING REASON FOR EXAM: Female, 51 years old. Routine annual screening examination. PERTINENT HISTORY: Aunts with breast cancer. TECHNIQUE: Digital bilateral breast sabina (3D mammographic acquisition) in the CC and MLO projections. 2-D mediolateral oblique (MLO) and craniocaudad (CC) views of both breasts were obtained. CAD: Full Field Digital Mammography with Computer Added Detection was performed. COMPARISON: Comparison is made with prior study dated 05/17/2016 and 02/04/2015. FINDINGS: Breast Composition: The breasts are heterogeneously dense, which may obscure small masses. There are no dominant masses or suspicious calcifications. Stable asymmetrical breast tissue with more breast tissue is seen in the deep central medial aspect of the left breast as compared to the right side. No other significant abnormalities are identified. There has been no significant change since the prior study. BI/SCRN MAMM (CAD)W/SABINA BILAT IMPRESSION: Stable bilateral screening mammogram. Yearly follow-up mammogram recommended. (A) ASSESSMENT CATEGORY: BIRADS Category 2: Benign. A letter regarding these results will be sent to the patient by the facility within 30 days. Approximately 10% of breast cancers are not detected by mammography. A normal mammogram should not delay biopsy of a clinically suspicious abnormality. [id number] Electronically Signed: Michael Colbert MD at 12:26 EDT ,
--- NOTE | 2021-08-16 11:29 | BD_ITS ---
STUDY: DUAL ENERGY X-RAY ABSORPTIOMETRY / DXA REASON FOR EXAM: Female, 51 years old. 627.8Menopausal postmenopausalBONE DENSITY REASON FOR EXAM TECHNIQUE: Bone Mineral Density (BMD) measurements of lumbar spine and bilateral hips were obtained. COMPARISON: Comparison is made with prior study 02/05/2019. FINDINGS: Lumbar Spine (L1-L4): g/cm2 (0.985) / T-score (-0.6) / Z-score (0.4) Findings are suggestive of normal bone density with a low fracture risk. Left Femur Total: g/cm2 (0.902) / T-score (-0.3) / Z-score (0.3) Left Femoral Neck: g/cm2 (0.758) / T-score (-0.8) / Z-score (0.1) Right Femur Total: g/cm2 (0.868) / T-score (-0.6) / Z-score (0.0) Right Femoral Neck: g/cm2 (0.690) / T-score (-1.4) / Z-score (-0.5) The T-Scores on the most recent prior examination were: Lumbar Spine (L1-L4): There has been worsening of bone density since the previous examination. Left Femur Total: which represents an improvement of 0.5%. Right Femur Total: which represents an improvement of 1.9%. BD/Dexa Bone Density Study IMPRESSION: The patient is considered osteopenic as outlined below according to World [employer] Organization (WHO) criteria with a low fracture risk. There has been improvement of bone density since the previous examination. Reference Information: The T-score is the number of standard deviations above or below the standard which is normal for young adults at their peak bone mineral density. The World Health Organization (WHO) interprets the T-scores as follows: Above -1 Normal bone density Between -1 and -2.5 Osteopenia Equal to / or below -2.5 Osteoporosis As a practical clinical guideline, osteopenia may be graded as follows: Mild -1 through -1.5 Moderate -1.6 through -2.0 Severe -2.1 through -2.4 The Z-score is the number of standard deviations above or below age-matched controls. A Z-score of less than -1.5 would be considered abnormal. References: 1. NIH Osteoporosis and Related Bone Diseases www osteo.org 2. International Society for Clinical Densitometry www iscd.org 3. National Osteoporosis Foundation www nof.org Electronically Signed: Michael Colbert MD at 15:44 EDT ,
== END | disposition home or self-care (01) ==
LOC: OPBD 11:26
PROVIDERS: PCP Internal Medicine; Visit Provider Internal Medicine
DX: Z12.31 Encounter for screening mammogram for malignant neoplasm of breast (principal); Z78.0 Asymptomatic menopausal state
CPT/HCPCS: 77063; 77067; 77080

== ENCOUNTER → 2022-11-23 | Outpatient (CLI) | payer OTHER, SELFPAY ==
--- NOTE | 2022-11-23 10:35 | BI_ITS ---
MAMMOGRAPHY - BILATERAL SCREENING REASON FOR EXAM: Female, 52 years old. Routine annual screening examination. PERTINENT HISTORY: Aunts with breast cancer. TECHNIQUE: Digital bilateral breast sabina (3D mammographic acquisition) in the CC and MLO projections. 2-D mediolateral oblique (MLO) and craniocaudad (CC) views of both breasts were obtained. CAD: Full Field Digital Mammography with Computer Added Detection was performed. COMPARISON: Comparison is made with prior study dated August 16, 2021 and May 17, 2016. FINDINGS: Breast Composition: The breasts are heterogeneously dense, which may obscure small masses. There are no dominant masses or suspicious calcifications. Stable appearance of the asymmetrical breast tissue in the deep central medial aspect of the left breast as compared to the right side. No other significant abnormalities are identified. There has been no significant change since the prior study. BI/SCRN MAMM (CAD)W/SABINA BILAT IMPRESSION: Stable bilateral screening mammogram. Yearly follow-up mammogram recommended. (A) ASSESSMENT CATEGORY: BIRADS Category 2: Benign. A letter regarding these results will be sent to the patient by the facility within 30 days. Approximately 10% of breast cancers are not detected by mammography. A normal mammogram should not delay biopsy of a clinically suspicious abnormality. [id number] Electronically Signed: Michael Colbert MD at 10:15 EDT ,
== END | disposition home or self-care (01) ==
LOC: OPBI 10:34
PROVIDERS: PCP Internal Medicine; Referring Provider Internal Medicine; Visit Provider Internal Medicine
DX: Z12.31 Encounter for screening mammogram for malignant neoplasm of breast (principal)
CPT/HCPCS: 77063; 77067

== ENCOUNTER → 2023-07-16 | Outpatient (CLI) | payer OTHER, SELFPAY ==
[2023-07-16 10:23] LABS: Mucous, Urine 0 SEEN /hpf (<or=2+)
[2023-07-16 10:26] LABS: Color, Urine Yellow (Yellow); Glucose, Dipstick Normal (Normal); Ketone-Dipstick Negative (Negative); Leukocyte Esterase-Dipstick 100 /ul (Negative); Nitrite-Dipstick Negative (Negative); Occult Blood-Urine 25 /ul (Negative); Protein-Dipstick Negative (Negative); Specific Gravity, Urine 1.015 (1.002-1.030); Urine Bilirubin Dipstick Negative (Negative); Urine Clarity Sl. Cloudy (Clear); Urine Urobilinogen Normal (Normal)
[2023-07-16 10:32] LABS: Bacteria RARE /hpf (None Seen); Red Blood Cells-Urine 0-5 SEEN /hpf (0-5); Squamous Epithelial Cells - UA 0-5 SEEN /hpf (5-10); White Blood Cells 5-10 SEEN /hpf (0-5)
== END | disposition home or self-care (01) ==
LOC: LABSPEC 09:58
PROVIDERS: PCP Internal Medicine; Referring Provider Physician Assistant; Visit Provider Physician Assistant
DX: R10.9 Unspecified abdominal pain (principal)
CPT/HCPCS: 81001; 87086; 87088

== ENCOUNTER 2023-07-23 12:54 | Emergency (ER) | payer OTHER, SELFPAY ==
[2023-07-23] VITALS (10 sets, daily range): BP systolic 120–137; BP diastolic 76–97; PULSE 81–97; RESP 11–21; TEMP 35.9–36.9; O2SAT 95–100; BMI 27.9
--- NOTE | 2023-07-23 14:15 | EKG12_ITS ---
Test Reason : Blood Pressure : / mmHG Vent. Rate : 088 BPM Atrial Rate : 088 BPM P-R Int : 168 ms QRS Dur : 068 ms QT Int : 340 ms P-R-T Axes : 051 012 010 degrees QTc Int : 411 ms Normal sinus rhythm Low voltage QRS Borderline ECG Confirmed by PATRICIA FENTON, NATALIYA ([id number]), editor farm journal LIANNE BAILEY ([id number]) on 07/29/2023 1:34:33 PM Referred By: Confirmed By:MARYCHUY GOMEZ MD
--- NOTE | 2023-07-23 14:16 | EDS_ITS ---
HPI History of Present Illness Chief Complaint: Shortness of Breath Narrative Narrative: 53-year-old female past medical history of hearing impairment, hypercholesterolemia, presents with cough and shortness of breath that she has had over the last few days. She relates history that on the of the month, approximately 10 days ago, she went to urgent care and was diagnosed with a UTI, and took Levaquin as an antibiotic. That seemed to clear up, but she was seen by her primary care provider on Saturday, approximately 5 days ago, where she found out she was COVID-positive. She denies that she had any fever, but has had cough, and increasing shortness of breath with dyspnea on exertion. No chest pain, no nausea or vomiting, no sweating. She is concerned because she is coughing more, and seems to be more short of breath. She was put on a prednisone taper and has been on it for the last few days. However, she reports that she was not given an inhaler. [facility] Medical History Abnormal TSH Acute bronchitis, unspecified Acute maxillary sinusitis, unspecified Anxiety Carpal tunnel syndrome on right Cervical radiculopathy Chronic idiopathic constipation Depression Dysthymic Epigastric pain History of IBS Hypercholesteremia Hypoglycemia Hypothyroid Osteopenia Paresthesia of both hands SOB (shortness of breath) UTI (urinary tract infection) Vitamin D deficiency Wrist pain, right Home Medications levothyroxine 25 mcg tablet (Synthroid) 25 mcg PO MOTUWETHFR 07/18/17 [History Last Taken Unknown] venlafaxine 75 mg capsule,extended release 24 hr (Effexor XR) 150 mg PO DAILY 07/18/17 [History Last Taken Unknown] calcium carbonate 600 mg-vitamin D3 20 mcg (800 unit) tablet 1 ea PO BID 07/01 08/16 [History Last Taken Unknown] amitriptyline 10 mg tablet 10 mg PO DAILY 05/26/20 [History Last Taken Unknown] levothyroxine 50 mcg capsule 50 mcg PO DAILY 09/17/20 [History Last Taken Unknown] cetirizine 10 mg capsule (Zyrtec) 10 mg PO DAILY PRN 07/17/22 [History Last Taken Unknown] levofloxacin 750 mg tablet 750 mg PO DAILY #5 tabs 07/16/23 [Rx Last Taken Unknown] albuterol sulfate 90 mcg/actuation aerosol inhaler (Ventolin HFA) 1 - 2 puff inhalation Q4H PRN PRN Wheezing #1 ea 07/23/23 [Rx Last Taken Unknown] Allergy/AdvReac Type Severity Reaction Status Date / Time cefuroxime [From Ceftin] Allergy Unknown Unknown Verified 07/23/23 12:55 clarithromycin [From Biaxin] Allergy Unknown Unknown Verified 07/23/23 12:55 doxycycline Allergy Unknown Unknown Verified 07/23/23 12:55 erythromycin base Allergy Unknown Unknown Verified 07/23/23 12:55 Family History Mother Diabetes Thyroid disorder Father Heart disease Colon cancer Daughter Clotting disorder Surgical History History of carpal tunnel surgery S/P colonoscopy S/P hysterectomy S/P tonsillectomy Status post cholecystectomy Social History Smoking Status: Never smoker second hand exposure: No alcohol intake: never substance use type: does not use caffeine: Yes what type of physical activity do you participate in: none frequency: does not exercise seatbelt use: always ROS ROS ED ROS Narrative Constitutional: No fever, no chills. HEENT: No sore throat. No neck pain. No loss of vision. No rhinorrhea. Cardiovascular: No chest pain. No palpitations. No pedal edema. Respiratory: Positive cough, increasing dyspnea on exertion and shortness of breath. Abdominal: No abdominal pain. No nausea. No vomiting. Genitourinary: No dysuria. No hematuria. Musculoskeletal: No myalgias. No arthralgias. Neurologic: No headaches. No dizziness. No lightheadedness. Skin: No rash. No change in color. Psychiatric: No depression. No anxiety. EXAM Physical Exam Narrative Exam Narrative: Afebrile. Vital signs noted. HEENT: Normocephalic. Atraumatic. PERRL, EOMI. Neck soft and supple. No point tenderness or step off. Cardiovascular: Regular rate and rhythm. No murmurs, rubs, or gallops appreciated. Respiratory: No tachypnea. Lungs clear to auscultation bilaterally. However, dry cough on examination and slightly prolonged expiratory phase. Moving a good amount of air. Gastrointestinal: Abdomen soft, nontender, with normoactive bowel sounds. No rebound or guarding. Neurological: Awake. Alert. Nonfocal, nonlateralizing. Skin: No rash. Normal color. No pallor. Musculoskeletal: No pedal edema. Full range of motion extremities. Const Vital Signs: 07/23/23 12:55 07/23/23 12:58 07/23/23 13:17 Temperature 97.9 F 97.9 F Temperature Source Temporal Temporal Pulse Rate 95 95 Respiratory Rate 21 H 21 H Respiratory Effort Short of Breath Respiratory Depth Normal Respiratory Pattern Normal Blood Pressure 137/91 H 137/91 H Blood Pressure Mean 106 106 Pulse Ox 100 100 Oxygen Delivery Method Room Air Room Air Room Air 07/23/23 13:58 07/23/23 14:00 07/23/23 14:33 Temperature 97.9 F 97.6 F L Temperature Source Temporal Temporal Pulse Rate 92 87 Respiratory Rate 19 H 17 Respiratory Effort Respiratory Depth Respiratory Pattern Blood Pressure 130/89 H 120/86 H Blood Pressure Mean 102 97 Pulse Ox 100 97 Oxygen Delivery Method Room Air Room Air Room Air 07/23/23 14:39 07/23/23 14:39 07/23/23 14:54 Temperature Temperature Source Pulse Rate 83 89 Respiratory Rate 13 11 L Respiratory Effort Respiratory Depth Respiratory Pattern Normal Blood Pressure 130/81 H Blood Pressure Mean 97 Pulse Ox 98 97 Oxygen Delivery Method Room Air Room Air 07/23/23 15:00 Temperature 96.7 F L Temperature Source Temporal Pulse Rate 85 Respiratory Rate 11 L Respiratory Effort Respiratory Depth Respiratory Pattern Blood Pressure 130/81 H Blood Pressure Mean 97 Pulse Ox 95 Oxygen Delivery Method Room Air MDM MDM MDM Narrative Medical decision making narrative: Patient is already on a prednisone taper. She will be given albuterol nebulizer treatment here in the emergency department. 1 view chest x-ray will be obtained to rule out pneumothorax or pneumonia, but she has already taken antibiotics for a UTI within the last 10 days. I will also obtain baseline laboratory work and EKG. I do not feel she needs a troponin as I have low suspicion for acute coronary syndrome given her history and physical. Additionally, this is day 5 of her being positive for COVID, she has not been febrile, and her pulse ox ranges from 99 to 100% on room air here. I do not feel that she needs a repeat swab. EKG obtained and interpreted by myself independently as normal sinus rhythm at 88 bpm without ectopy or acute ST changes. No STEMI. I reviewed her laboratory work and she has a slight leukocytosis of 12.9 which may be from her prednisone, hemoglobin normal at 14.9, hematocrit 44.6, platelet count normal at 365. Review of her electrolyte panel is grossly unremarkable with a normal BUN of 12 and normal creatinine of 1.01. Glucose is slightly elevated however at 113 with an anion gap normal at 5. Chest x-ray in 1 view interpreted by myself independently shows no evidence of pneumonia or pneumothorax. I do not feel antibiotics are indicated. I reviewed the radiology report which confirms my independent interpretation. Upon repeat examination at approximately 1520, she may feel slightly improved, she is moving a good amount of air and no longer has a slightly prolonged expiratory phase. At this point in time, I do not feel she requires admission, she will continue her prednisone taper and I will add an albuterol inhaler to use 1 to 2 puffs every 4-6 hours as needed for shortness of breath. I feel she can be discharged to follow-up with her primary care provider. Return instructions to the emergency department were reviewed. Disposition is discharged home in stable condition. History & Record Review Discussion w/independent historian: Patient and Family Lab Data Attestation: I reviewed the patient's lab results. Labs: Laboratory Results - last 24 hr 07/23/23 14:20 WBC 12.9 H RBC 5.45 H Hgb 14.9 Hct 44.6 MCV 81.8 MCH 27.3 MCHC 33.4 RDW Std Deviation 38.3 RDW Coeff of [place] 12.9 Plt Count 365 MPV 8.9 Immature Gran % (Auto) 0.400 Neut % (Auto) 85.2 H Lymph % (Auto) 12.1 L [place] % (Auto) 1.9 Eos % (Auto) 0.1 Baso % (Auto) 0.3 Absolute Neuts (auto) 11.0 H Absolute Lymphs (auto) 1.56 Nucleated RBC % 0 Sodium 139 Potassium 3.7 Chloride 105 Carbon Dioxide 29.0 Anion Gap 5 BUN 12 Creatinine 1.01 Estim Creat Clear Calc 57.41 Est GFR (MDRD) Af Amer 73 Est GFR (MDRD) Non-Af 61 BUN/Creatinine Ratio 11.9 Glucose 113 H Calcium 9.2 Radiography Diagnostic Testing: Clinical Impression(s) from Imaging Studies Chest X-Ray 07/23/23 14:23 IMPRESSION: Normal x-ray examination of the chest. Electronically Signed: Michael Colbert MD at 14:44 EDT , Discharge Plan Triage Chief Complaint: Shortness of Breath ED Provider: Sky Merlos Dx/Rx/DC Orders Clinical Impression: History of COVID-19, SOB (shortness of breath), Acute bronchitis, unspecified Instructions: ED Bronchitis with Wheezing (Adult), ED Bronchitis, No Antibiotic (Adult) Prescriptions: New albuterol sulfate [Ventolin HFA] 90 mcg/actuation HFA aerosol inhaler 1 - 2 puff inhalation Q4H PRN PRN (Reason: Wheezing) Qty: 1 0RF No Action levothyroxine [Synthroid] 25 mcg tablet 25 mcg PO MOTUWETHFR venlafaxine [Effexor XR] 75 mg capsule,extended release 24hr 150 mg PO DAILY amitriptyline 10 mg tablet 10 mg PO DAILY levothyroxine 50 mcg capsule 50 mcg PO DAILY Zyrtec 10 mg capsule 10 mg PO DAILY PRN levofloxacin 750 mg tablet 750 mg PO DAILY Qty: 5 0RF calcium carbonate-vitamin D3 1 EACH tablet 1 ea PO BID Primary Care Provider: Carleen Michele Referrals: Carleen Michele, [Primary Care Provider] - 1 Week if not improving Activity Restrictions/Additional Instructions: Continue your prednisone taper as previously directed. Use albuterol inhaler 1 to 2 puffs inhaled every 4-6 hours as needed for shortness of breath. Disposition Disposition: Home, Self Care
--- NOTE | 2023-07-23 14:23 | RAD_ITS ---
STUDY: X-RAY CHEST REASON FOR EXAM: Female, 53 years old. Cough, shortness of breath TECHNIQUE: Single AP portable view of the chest. COMPARISON: Comparison is made with prior study May 30, 2020. FINDINGS: The lungs are clear and expanded. There is no demonstrated pleural abnormality. Normal size heart. Normal mediastinum and uzma. Normal visualized pulmonary arteries. Normal visualized aortic arch and descending thoracic aorta. Normal visualized thoracic spine. Normal visualized ribs, clavicles, and shoulders. There is no demonstrated abnormality of the visualized soft tissue structures of the upper abdomen. RAD/Chest 1 View (Portable) IMPRESSION: Normal x-ray examination of the chest. Electronically Signed: Michael Colbert MD at 14:44 EDT ,
[2023-07-23 14:32] LABS: Absolute Lymphocyte Count 1.56 X10^3/uL (0.83-4.51); Basophil# 0.04 X10^3/uL; Basophil% 0.3 % (0-1); Eosinophil# 0.01 X10^3/uL; Eosinophils% 0.1 % (0-5); Hematocrit 44.6 % (37-47); Hemoglobin 14.9 g/dL (12.0-15.0); Lymphocyte # 1.56 X10^3/ul (0.83-4.51); Lymphocyte % 12.1 % (19-41); Mean Corp Hgb Conc 33.4 g/dL (32-36); Mean Corpuscular Hgb 27.3 pg (27.0-32.0); Mean Corpuscular Volume 81.8 fL (81-99); Mean Platelet Vol. 8.9 fl (6.2-12.0); Monocyte# 0.25 X10^3/uL; Monocyte% 1.9 % (0-10); NRBC Flagged by Analyzer 0 % (0-5); Neutrophil # 10.99 X10^3/uL (2.7-7.7); Neutrophil % 85.2 % (47-70); Platelet Count 365 K/mm3 (150-450); RBC Distribution Width CV 12.9 % (11.6-14.6); RBC Distribution Width SD 38.3 fl (35.1-43.9); Red Blood Count 5.45 M/mm3 (4.2-5.4); White Blood Count 12.9 K/mm3 (4.4-11.0)
[2023-07-23] MEDS: Albuterol 2.5 MG/3 ML VIAL.NEB. INHALATION (14:32)
[2023-07-23 14:43] LABS: Anion Gap 5 (5-15); BUN 12 mg/dL (7-18); BUN/Creat Ratio 11.9 RATIO (10-20); Calcium,Total 9.2 mg/dL (8.5-10.1); Chloride 105 mmol/L (98-107); Creatinine, Serum 1.01 mg/dL (0.55-1.02); EST Glomerular Filtration Rate 61 mL/min (>60); Est Glom Filt Rate - Afr Amer 73 mL/min (>60); Estimated Creatinine Clearance 57.41 ml/min; Glucose 113 mg/dL (74-106); Potassium 3.7 mmol/L (3.5-5.1); Sodium Level 139 mmol/L (136-145)
== END 2023-07-23 15:39 | disposition home or self-care (01) ==
PROVIDERS: Emergency Provider Emergency Medicine; PCP Internal Medicine; Visit Provider Emergency Medicine
DX: R06.02 Shortness of breath (principal); J20.9 Acute bronchitis, unspecified; Z86.16 Personal history of COVID-19
CPT/HCPCS: 71045; 80048; 85025; 93005; 94640; 99284

== ENCOUNTER → 2024-08-06 | Outpatient (CLI) | payer OTHER, SELFPAY ==
--- NOTE | 2024-08-06 16:38 | MRI_ITS ---
PROCEDURE: MRI ABD WITH AND W/O CONTRAST, 08/06/2024 REASON FOR EXAM: Liver lesion TECHNIQUE: Multiplanar multisequence MRI abdomen was performed with and without IV contrast. IV contrast: 13 mL Clariscan COMPARISON: 03/18/2020 ; note that images only are available for review, the report is not available at the time of the dictation. FINDINGS: Variable overall mild motion limitation. A couple sequences are mild/moderately motion degraded. Note some abdominal viscera are excluded from the field of view on some sequences as the exam is optimized for evaluation of the liver. Liver: 0.8 cm T2 bright T1 dark structure in the RIGHT hepatic dome with persistent hyperenhancement into the delayed phase. This is probably unchanged from 08/23/2018. Additional punctate enhancing 4 mm focus in the RIGHT hepatic lobe, not visible on prior exams, although potentially perfusional in the absence of T2 correlate. 1.5 cm lobulated thinly septated cyst in the inferior RIGHT hepatic lobe, unchanged from 08/23/2018. Spleen: Unremarkable. Gallbladder: Cholecystectomy. Pancreas: Unremarkable. Adrenals: Unremarkable. Kidneys: Unremarkable. Bowel: Not well evaluated by MRI, grossly unremarkable.. Lymph nodes: Unremarkable. Vasculature: Unremarkable. Peritoneum: Unremarkable. Body Wall: Unremarkable. Bones: Multilevel spondylosis. Presumed vertebral body hemangioma within L3. Mild S shaped scoliosis. MRI/MRI Abd WITH and W/O Contrast IMPRESSION: 1. Tiny enhancing hepatic lesions up to 0.8 cm are compatible with flash fillin g hemangiomas/perfusional findings. 1.5 cm hepatic cyst also present. Comparison with reported outside imaging would be h elpful. 2. Additional description as above. Reading Location: [id number]
== END | disposition home or self-care (01) ==
LOC: MRI 16:12
PROVIDERS: PCP Internal Medicine; Referring Provider Internal Medicine; Visit Provider Internal Medicine
DX: K76.9 Liver disease, unspecified (principal)
CPT/HCPCS: 74183; A9575; A4216

== ENCOUNTER → 2024-09-23 | Outpatient (CLI) | payer OTHER, SELFPAY ==
--- NOTE | 2024-09-23 08:00 | BD_ITS ---
PROCEDURE: DEXA BONE DENSITY STUDY 09/23/2024 REASON FOR EXAM: F, age 54 y/o . Postmenopausal. TECHNIQUE: DEXA BONE DENSITY STUDY COMPARISON: Prior study dated August 16, 2021. FINDINGS: BMD and T-SCORES Lumbar spine: 1.009 g/cm2, T-score -0.3 Levels: L1 through L4 Change from prior: Improvement of 2.5%. Left femoral neck: 0.738 g/cm2, T-score -1.0 Femoral neck comparison data not recommended for monitoring change. Left total hip: 0.883 g/cm2, T-score -0.5 Change from prior: Loss of 2.1%. Right femoral neck: 0.691 g/cm2, T-score -1.4 Femoral neck comparison data not recommended for monitoring change. Right total hip: 0.864 g/cm2, T-score -0.6 Change from prior: Loss of 0.5%. The World Health Organization has defined the following categories based on bone density: Normal bone density: T-score equal to or greater than -1.0 Osteopenia: T-score between -1.0 and -2.5 Osteoporosis: T-score equal to or less than -2.5 The patient does meet the pharmacological treatment recommendations for prevention of osteoporosis. BD/Dexa Bone Density Study IMPRESSION: OSTEOPENIA. Recommend follow-up as clinically warranted. Reading Location: [id number]
--- NOTE | 2024-09-23 08:30 | BI_ITS ---
EXAM: SCRN MAMM (CAD)W/SABINA BILAT DATE: 09/23/2024 CLINICAL HISTORY: F, Age 54 y/o , SCRN MAMM (CAD)W/SABINA BILAT TECHNIQUE: SCRN MAMM (CAD)W/SABINA BILAT COMPARISON: Prior exam(s) dated 11/23/2022, 08/16/2021. FINDINGS: TISSUE DENSITY: The breast tissue is composed of scattered areas of fibroglandular density. The parenchymal pattern is unchanged. Bilateral Breast Mammographic Findings: No significant masses, calcifications or other abnormalities are identified. BI/SCRN MAMM (CAD)W/SABINA BILAT IMPRESSION: There is no evidence of malignancy. OVERALL FINAL ASSESSMENT BI-RADS 1: NEGATIVE. RECOMMEND ANNUAL MAMMOGRAPHIC SCREENING. RECOMMENDATION: Routine annual follow-up in 1 Year A letter with findings and recommendations will be mailed to the patient. Reading Location: [id number]
== END | disposition home or self-care (01) ==
LOC: OPBD 07:55
PROVIDERS: PCP Internal Medicine; Referring Provider Internal Medicine; Visit Provider Internal Medicine
DX: Z13.820 Encounter for screening for osteoporosis (principal); Z78.0 Asymptomatic menopausal state; Z12.31 Encounter for screening mammogram for malignant neoplasm of breast
CPT/HCPCS: 77063; 77067; 77080

== ENCOUNTER 2024-12-29 22:45 | Emergency (ER) | payer OTHER, SELFPAY ==
[2024-12-29 22:45] VITALS: BP 140/100; PULSE 72; RESP 18; TEMP 36.7; O2SAT 99; BMI 27.1
--- NOTE | 2024-12-30 02:25 | EX.ED.DYSGE1 ---
HPI History of Present Illness Chief Complaint: Fall Informant: patient and spouse/S.O. Narrative Narrative: Patient is a 84-year-old female with past medical history of hypothyroidism and hyperlipidemia. She states that shortly prior to arrival she was trying to step over a gate while she was carrying a pot of food. She states that her foot caught the gate and she tripped and fell striking her face. She reports injury to her forehead/right eyebrow region as well as her upper lip. She denies any loss of consciousness history of bleeding disorder or blood thinner use. She states she was able to get up and ambulate following the trauma. However with concern she will need her lacerations close she presents for evaluation [facility] Medical History Acute bronchitis, unspecified UTI (urinary tract infection) Acute maxillary sinusitis, unspecified Hypothyroid Hypoglycemia Vitamin D deficiency Hypercholesteremia Depression Dysthymic Anxiety Carpal tunnel syndrome on right Chronic idiopathic constipation Wrist pain, right Cervical radiculopathy Osteopenia SOB (shortness of breath) Epigastric pain Paresthesia of both hands Abnormal TSH History of IBS Home Medications ?Medication ?Instructions ?Recorded ?Last Taken ?Type levothyroxine 25 mcg tablet 25 mcg PO MOTUWETHFR 07/18/17 Unknown History (Synthroid) venlafaxine 75 mg capsule,extended 150 mg PO DAILY 07/18/17 Unknown History release 24 hr (Effexor XR) amitriptyline 10 mg tablet 10 mg PO DAILY 05/26/20 Unknown History levothyroxine 50 mcg capsule 50 mcg PO DAILY 09/17/20 Unknown History albuterol sulfate 90 mcg/actuation 1 - 2 puff inhalation Q4H PRN PRN 07/23/23 Unknown Rx aerosol inhaler (Ventolin HFA) Wheezing #1 ea rosuvastatin 20 mg tablet 20 mg PO QDAY 06/27/24 Unknown History amoxicillin 875 mg-potassium 1 tab PO BID 7 days #14 tabs 12/30/24 Unknown Rx clavulanate 125 mg tablet Allergy/AdvReac Type Severity Reaction Status Date / Time cefuroxime (From Ceftin) Allergy Unknown Unknown Verified 12/29/24 22:46 clarithromycin (From Biaxin) Allergy Unknown Unknown Verified 12/29/24 22:46 doxycycline Allergy Unknown Unknown Verified 12/29/24 22:46 erythromycin base Allergy Unknown Unknown Verified 12/29/24 22:46 Family History Mother Diabetes Thyroid disorder Father Heart disease Colon cancer Daughter Clotting disorder Surgical History Status post cholecystectomy History of carpal tunnel surgery S/P tonsillectomy S/P hysterectomy S/P colonoscopy Social History Smoking Status: Never smoker second hand exposure: No alcohol intake: never substance use type: does not use caffeine: Yes what type of physical activity do you participate in: none frequency: does not exercise seatbelt use: always ROS ROS ED Constitutional Constitutional ED: Denies chills or fever(s) Eyes Eyes: Denies blurry vision or change in vision ENT ENT ED: Denies rhinorrhea or sore throat Cardiovascular Cardiovascular: Reports other Details: Negative syncope ; Denies chest pain Respiratory/Chest Respiratory/Chest: Denies cough or dyspnea Gastrointestinal Gastrointestinal: Denies abdominal pain, diarrhea, nausea or vomiting Musculoskeletal Musculoskeletal: Denies back pain or neck pain Integumentary Reports other Details: Positive facial lacerations Neurologic Neurologic: Denies headache(s), paresthesias or weakness Hematologic/Lymphatic Hematologic/Lymphatic: Denies easy bleeding or easy bruising EXAM Physical Exam Const Vital Signs: 12/29/24 22:45 12/29/24 23:06 Temperature 98.1 F Temperature Source Temporal Pulse Rate 72 Respiratory Rate 18 Respiratory Effort Normal Non-Labored Blood Pressure 140/100 H Blood Pressure Mean 113 Pulse Ox 99 Oxygen Delivery Method Room Air Positive well nourished and well developed General Appearance ED: well developed HEENT HEENT Narrative: No signs of depressed or basilar skull fracture Patient has a linear subcutaneous layer deep laceration along the lateral portion of the right eyebrow that is 2 cm in length with minimal ooze of blood and no retained foreign body There is a second linear subcutaneous layer deep laceration to the midportion of the upper lip above the vermilion border. The wound is 3 cm in length with minimal ooze of blood and no retained foreign body No obvious dental or jaw fracture noted No septal hematoma Eyes PERRL and EOMs intact bilaterally Eyes Narrative: No hyphema noted Neck supple Neck Narrative: No bony deformity or step-off of the cervical spine No midline tenderness to palpation Chest Wall palpation of chest normal Chest Narrative: No bony deformity or crepitance No pain on palpation of the chest wall Resp normal respiratory effort and clear to auscultation bilaterally Cardio regular rate and regular rhythm GI normal to inspection, nondistended, normoactive bowel sounds, non-tender, non-distended and no masses Auscultation: normoactive bowel sounds Palpation: soft Back/Spine Back/Spine Narrative: No bony deformity or step-off of the thoracic or lumbar spine No midline tenderness to palpation Extremity normal to inspection Extremity Narrative: Pelvis is stable there is no shortening or external rotation of either lower extremity Patient is able to move all extremities without pain No signs of long bone injury such as bony deformity or joint effusion Neuro oriented x3, CN's II-XII intact bilaterally and no sensory deficits noted Sensorium / Orientation: alert Motor Exam: strength 5/5 throughout Psych mental status grossly normal Skin Skin Narrative: Lacerations to the face as documented above MDM MDM MDM Narrative Medical decision making narrative: Patient arrived to the ER hypertensive but otherwise with stable vitals. She reported mechanical fall and therefore I felt no need for a cardiac or syncope workup. She did strike her head/face but does not have any obvious signs of bony injury such as nasal fracture or jaw fracture. We did discuss obtaining CT of the head to ensure there is no skull fracture or subarachnoid/subdural hemorrhage. The patient states that she does not have a high concern that an injury like that would be present and does not want imaging studies obtained. Therefore the patient had the laceration sutured as documented below and is otherwise safe for discharge Patient had the wound cleaned with chlorhexidine. The wounds were anesthetized using a total of 8 mL of 2% lidocaine with epinephrine and local fashion. Wounds were copiously irrigated with normal saline. Six 5-0 Ethilon sutures were then placed in simple interrupted fashion along the laceration to the midportion of the upper lip. This brought the wound together well with good approximation of the wound edges. A total of four 5-0 Ethilon sutures were then placed in simple interrupted fashion along the laceration along the right eyebrow. This also brought the wound edges get a well good approximation. Patient tolerated the procedure well without complication History & Record Review Discussion w/independent historian: Patient and Significant other Discharge Plan Triage Chief Complaint: Fall ED Provider: Hugo Dawson Dx/Rx/DC Orders Clinical Impression: Facial laceration, Accidental fall, Hypothyroidism, Hyperlipidemia Instructions: ED Head Injury (Adult), ED Laceration, All Closures Prescriptions: New amoxicillin-pot clavulanate 875-125 mg tablet 1 tab PO BID 7 Days Qty: 14 0RF No Action levothyroxine [Synthroid] 25 mcg tablet 25 mcg PO MOTUWETHFR venlafaxine [Effexor XR] 75 mg capsule,extended release 24hr 150 mg PO DAILY amitriptyline 10 mg tablet 10 mg PO DAILY levothyroxine 50 mcg capsule 50 mcg PO DAILY rosuvastatin 20 mg tablet 20 mg PO QDAY albuterol sulfate [Ventolin HFA] 90 mcg/actuation HFA aerosol inhaler 1 - 2 puff inhalation Q4H PRN PRN (Reason: Wheezing) Qty: 1 0RF Primary Care Provider: Carleen Michele Referrals: Carleen Michele DO [Primary Care Provider, Internal Medicine] Activity Restrictions/Additional Instructions: Please see your family doctor or return to the ER in 5 to 7 days for suture removal. In order to prevent secondary infection please take the antibiotic as directed as well Print Language: Bengali Disposition Disposition: Home, Self Care Discharge Date/Time: 12/30/24 02:33
[2024-12-30 02:31] VITALS: BP 145/74; PULSE 81; RESP 16; TEMP 36.7; O2SAT 99
== END 2024-12-30 02:33 | disposition home or self-care (01) ==
PROVIDERS: Emergency Provider Emergency Medicine; PCP Internal Medicine; Visit Provider Emergency Medicine
DX: S01.111A Laceration without foreign body of right eyelid and periocular area, initial encounter (principal); S01.511A Laceration without foreign body of lip, initial encounter; W01.10XA Fall on same level from slipping, tripping and stumbling with subsequent striking against unspecified object, initial encounter; E03.9 Hypothyroidism, unspecified; E78.5 Hyperlipidemia, unspecified; Z79.890 Hormone replacement therapy; Z79.899 Other long term (current) drug therapy
CPT/HCPCS: 12013; 99282